=== PATIENT | female | born 1980 | race Caucasian/White ===

== ENCOUNTER → 2018-09-08 | Outpatient (CLI) | payer BC | LOC: DL.MRI 13:27 | PROVIDERS: ATTEND Orthopaedic Surgery | DX: M25.512 Pain in left shoulder (principal); G89.29 Other chronic pain; M75.82 Other shoulder lesions, left shoulder; M19.012 Primary osteoarthritis, left shoulder | CPT/HCPCS: 73221-LT ==

== ENCOUNTER 2018-10-03 19:18 | Emergency (ER) | payer BC ==
--- NOTE | 2018-10-03 19:39 | EDM.PDOC ---
ED HPI GENERAL MEDICAL PROBLEM - General Chief Complaint: Upper Extremity Injury/Pain Stated Complaint: LEFT SHOULDER PAIN Time Seen by Provider: 10/03/18 19:30 Source of Information: Reports: Patient, RN History Limitations: Reports: No Limitations - History of Present Illness INITIAL COMMENTS - FREE TEXT/NARRATIVE: c/o pain to left shoulder. Joint injection done on Tuesday in [place]. Has had more pain in joint with this injection than one prior. Contacted clinic by email today and told to go to ED for evaluation. No known fever or chills. Has been applying ice to shoulder. Pain worse with movement Left Shoulder Pain Score (Numeric/FACES): 9 - Related Data Allergies Allergy/AdvReac Type Severity Reaction Status Date / Time latex Allergy Itching Verified 10/03/18 19:26 Home Meds: Home Meds QUEtiapine Fumarate [Quetiapine Fumarate] 10 mg PO DAILY 10/03/18 [History] Sertraline HCl 50 mg PO DAILY 10/03/18 [History] Temazepam 30 mg PO DAILY 10/03/18 [History] Past Medical History Musculoskeletal History: Reports: Other (See Below) Other Musculoskeletal History: shoulder injury Social & Family History - Tobacco Use Smoking Status *Q: Never Smoker Second Hand Smoke Exposure: No - Recreational Drug Use Recreational Drug Use: No Review of Systems - Review of Systems Review Of Systems: ROS reveals no pertinent complaints other than HPI. ED EXAM, GENERAL - Physical Exam Exam: See Below Exam Limited By: No Limitations General Appearance: Alert, Mild Distress Eye Exam: Bilateral Eye: EOMI Ears: Normal External Exam, Normal TMs Nose: Normal Inspection Throat/Mouth: Normal Inspection Head: Atraumatic, Normocephalic Neck: Normal Inspection, Full Range of Motion Respiratory/Chest: No Respiratory Distress, Lungs Clear, Normal Breath Sounds Cardiovascular: Normal Peripheral Pulses, Regular Rate, Rhythm Peripheral Pulses: 2+: Radial (L) GI/Abdominal: Normal Bowel Sounds Extremities: Limited Range of Motion (left shoulder), Redness (Quarter size redness at injection site. 10xx11 cm surrounding light redness to upper shoulder. mild tenderness with palpation pain worse with movement.). No: Normal Range of Motion, Joint Swelling, Increased Warmth Course - Vital Signs Last Recorded V/S: Last Vital Signs Temp 96.7 F 10/03/18 19:22 Pulse 67 10/03/18 19:22 Resp 18 10/03/18 19:22 BP 118/75 10/03/18 19:22 Pulse Ox 100 10/03/18 19:22 - Orders/Labs/Meds Labs: Laboratory Tests 10/03/18 10/03/18 10/03/18 Range/Units 20:57 20:57 20:57 WBC 10.3 H (5.0-10.0) 10^3/uL RBC 5.06 (4.2-5.4) 10^6/uL Hgb 15.2 (12.0-16.0) g/dL Hct 44.1 (37.0-47.0) % MCV 87.2 (80-100) fL MCH 30.0 (27.0-34.0) pg MCHC 34.5 (33.0-35.0) g/dL Plt Count 316 (150-450) 10^3/uL Neut % (Auto) 60.8 (42.2-75.2) % Lymph % (Auto) 26.1 (20.5-50.1) % [place] % (Auto) 11.2 H (2-8) % Eos % (Auto) 1.7 (1.0-3.0) % Baso % (Auto) 0.2 (0.0-1.0) % Sodium 136 (135-145) mmol/L Potassium 3.7 (3.6-5.0) mmol/L Chloride 102 (101-111) mmol/L Carbon Dioxide 22.0 (21.0-31.0) mmol/L Anion Gap 15.7 BUN 14 (7-18) mg/dL Creatinine 0.7 (0.6-1.3) mg/dL Est Cr Clr Drug Dosing 107.00 mL/min Estimated GFR (MDRD) > 60 BUN/Creatinine Ratio 20.00 Glucose 80 (74-105) mg/dL Lactic Acid 1.3 (0.5-2.2) mmol/L Calcium 9.2 (8.4-10.2) mg/dl Total Bilirubin 0.5 (0.2-1.0) mg/dL AST 23 (10-42) IU/L ALT 32 (10-60) IU/L Alkaline Phosphatase 96 (42-121) IU/L Total Protein 8.1 (6.7-8.2) g/dl Albumin 4.2 (3.2-5.5) g/dl Globulin 3.9 Albumin/Globulin Ratio 1.08 Meds: Medications Discontinued Medications Generic Name Dose Route Start Last Admin Trade Name Patsy PRN Reason Stop Dose Admin Hydrocodone Bitart/Acetaminophen 1 tab 10/03/18 21:24 10/03/18 21:31 [place] 325-10 Mg PO 10/03/18 21:25 1 tab ONETIME ONE Administration Departure - Departure Time of Disposition: 21:46 Disposition: Home, Self-Care 01 Condition: Good Clinical Impression: Left shoulder pain - Discharge Information *PRESCRIPTION DRUG MONITORING PROGRAM REVIEWED*: Yes *COPY OF PRESCRIPTION DRUG MONITORING REPORT IN PATIENT DAVID: No Instructions: Shoulder Pain, Tendinitis, [id number] Referrals: PCP,None [Primary Care Provider] - Forms: ED Department Discharge Additional Instructions: Continue meloxicam as ordered rest to shoulder continue ice follow up with ortho in am
[2018-10-03 21:23] LABS: ANION GAP 15.7; CHLORIDE,CL 102 mmol/L (101-111); SODIUM,NA 136 mmol/L (135-145)
[2018-10-03] MEDS ORDERED: Acetaminophen/HYDROcodone 325-10 MG Tab PO ONE (21:24)
== END 2018-10-03 21:54 | disposition home or self-care (01) ==
LOC: DL.ED 19:18
DX: M25.512 Pain in left shoulder (principal); Z91.040 Latex allergy status; Z79.899 Other long term (current) drug therapy
CPT/HCPCS: 36415; 80053; 83605; 85025; 99283; A9270

== ENCOUNTER 2019-12-07 11:26 | Emergency (ER) | payer BC ==
--- NOTE | 2019-12-07 14:26 | CR ---
PROCEDURE INFORMATION: Exam: XR Right Finger(s) Exam date and time: 12/07/2019 2:01 PM Age: 39 years old Clinical indication: Pain; Finger(s); Right; Additional info: Crush/smashed distal right 4th finger TECHNIQUE: Imaging protocol: XR Right fingers. Views: Minimum 2 views. COMPARISON: No relevant prior studies available. FINDINGS: Bones/joints: The alignment of the joints is anatomic and the joint spaces are maintained. There is no evidence of acute fracture. There are no lytic or blastic skeletal lesions present. Soft tissues: No soft tissue swelling is identified. No radio-opaque foreign body seen. IMPRESSION: No acute process.
--- NOTE | 2019-12-07 14:59 | EDM.PDOC ---
Scribed by Krys Lo 12/07/19 3030 for Ashlie Mcghee MD ED HPI GENERAL MEDICAL PROBLEM - General Chief Complaint: Upper Extremity Injury/Pain Stated Complaint: NEED TO GET FINGER DRAINED Time Seen by Provider: 12/07/19 13:56 Source of Information: Reports: Patient, RN, RN Notes Reviewed History Limitations: Reports: No Limitations - History of Present Illness INITIAL COMMENTS - FREE TEXT/NARRATIVE: Patient presents to ER by POV stating that she dropped a propane tank on the distal right fourth finger. Denies any other injury. She complains of a lot of pressure at the distal finger, feels like the nail may need to be trepan to relieve the pressure. Onset Date: 12/06/19 Duration: Getting Worse Location: Reports: Upper Extremity, Right Quality: Reports: Ache Severity: Moderate Improves with: Reports: Rest Worsens with: Reports: Other (touch) Associated Symptoms: Reports: No Other Symptoms - Related Data Allergies Allergy/AdvReac Type Severity Reaction Status Date / Time latex Allergy Itching Verified 12/07/19 14:10 Home Meds: Home Meds QUEtiapine Fumarate [Quetiapine Fumarate] 10 mg PO BEDTIME 10/03/18 [History] Sertraline HCl 50 mg PO BEDTIME 10/03/18 [History] Temazepam 30 mg PO DAILY 10/03/18 [History] Past Medical History Musculoskeletal History: Reports: Other (See Below) Other Musculoskeletal History: shoulder injury Review of Systems - Review of Systems Review Of Systems: Comprehensive ROS is negative, except as noted in HPI. ED EXAM, GENERAL - Physical Exam Exam: See Below Exam Limited By: No Limitations General Appearance: Alert, WD/WN, No Apparent Distress Head: Atraumatic, Normocephalic Respiratory/Chest: No Respiratory Distress Cardiovascular: Normal Peripheral Pulses Extremities: Normal Range of Motion, Normal Capillary Refill, Other (right 4th finger subungual hematoma with generalized distal finger tenderness. Skin is intact. ) Neurological: Alert, Oriented, No Motor/Sensory Deficits ED TRAUMA EXTREMITY PROCEDURES - Additional/Other Procedure(s) Other (Free Text) Procedure(s): Rt 4th finger nail subungual hematoma trephinated with 18g needle with relief. Course - Vital Signs Last Recorded V/S: Last Vital Signs Temp 98.5 F 12/07/19 12:43 Pulse 72 12/07/19 12:43 Resp 16 12/07/19 12:43 BP 128/83 12/07/19 12:43 Pulse Ox 98 12/07/19 12:43 - Radiology Interpretation Free Text/Narrative:: [facility] [place] [facility] Final Radiology Report Call: [phone] assistance Online chat: [email or web address] Name: TYLER ARRINGTON Age: 39Years F Date: 12/07/2019 SSN: -- : [id number] Study: CR FINGERS FOURTH DIGIT RT Requesting Physician: ASHLIE MCGHEE Images: 3 Addl Studies: Provided Clinical History: Crush/smashed distal right 4th finger Contrast: Contrast Medium: Contrast Amount: Contrast Method: CONFIDENTIALITY STATEMENT This report is intended only for use by the referring physician, and only in accordance with law. If you received this in error, call [phone]. Page 1 of 1 PROCEDURE INFORMATION: Exam: XR Right Finger(s) Exam date and time: 12/07/2019 2:01 PM Age: 39 years old Clinical indication: Pain; Finger(s); Right; Additional info: Crush/smashed distal right 4th finger TECHNIQUE: Imaging protocol: XR Right fingers. Views: Minimum 2 views. COMPARISON: No relevant prior studies available. FINDINGS: Bones/joints: The alignment of the joints is anatomic and the joint spaces are maintained. There is no evidence of acute fracture. There are no lytic or blastic skeletal lesions present. Soft tissues: No soft tissue swelling is identified. No radio-opaque foreign body seen. IMPRESSION: No acute process. Thank you for allowing us to participate in the care of your patient. Dictated and Authenticated by: Marcos Olvera MD 12/07/2019 2:25 PM Central Time ([place] & [place]) Departure - Departure Time of Disposition: 14:56 Disposition: Home, Self-Care 01 Condition: Good Clinical Impression: Subungual hematoma of finger of right hand Qualifiers: Encounter type: initial encounter Qualified Code(s): S60.10XA - Contusion of unspecified finger with damage to nail, initial encounter - Discharge Information *PRESCRIPTION DRUG MONITORING PROGRAM REVIEWED*: Not Applicable *COPY OF PRESCRIPTION DRUG MONITORING REPORT IN PATIENT DAVID: Not Applicable Instructions: Subungual Hematoma Forms: ED Department Discharge Additional Instructions: Keep affected finger nail covered with a band aid or tape. Sepsis Event Note (ED) - Focused Exam Vital Signs: Vital Signs Temp Pulse Resp BP Pulse Ox 12/07/19 12:43 98.5 F 72 16 128/83 98 I have read and agree with the documentation that has been completed regarding this visit. By signing this record, I attest that the documentation was completed in my physical presence and is an accurate record of the encounter.
== END 2019-12-07 15:12 | disposition home or self-care (01) ==
LOC: DL.ED 11:26
DX: S60.141A Contusion of right ring finger with damage to nail, initial encounter (principal); Z91.040 Latex allergy status; Z79.899 Other long term (current) drug therapy; W20.8XXA Other cause of strike by thrown, projected or falling object, initial encounter
CPT/HCPCS: 11740; 73140-F8; 99283-25

== ENCOUNTER 2020-09-24 16:21 | Emergency (ER) | payer BC ==
[2020-09-24] MEDS ORDERED: Lidocaine 1% 30 ML SDV INJECT ONE (16:40)
[2020-09-24] MEDS ORDERED: Bacitracin Oint 1 GM U/D Packet TOP ONE (16:43)
--- NOTE | 2020-09-24 17:18 | EDM.PDOC ---
<Lamin Hector - Last Filed: 09/24/20 17:18> ED HPI GENERAL MEDICAL PROBLEM - General Chief Complaint: Upper Extremity Injury/Pain Stated Complaint: FINGER SLAMMED IN CAR DOOR Time Seen by Provider: 09/24/20 16:40 Source of Information: Reports: Patient History Limitations: Reports: No Limitations - History of Present Illness INITIAL COMMENTS - FREE TEXT/NARRATIVE: Ny is a 40 year old female presenting to the ER following getting her finger caught in a car door. It happened a few hours ago, the car door closed on her left fifth digit. She has pain over the area and bleeding. She has sensation in her finger tip. She states she felt a clicking in her distal 5th digit. Onset: Today - Related Data Allergies Allergy/AdvReac Type Severity Reaction Status Date / Time latex Allergy Itching Verified 09/24/20 16:35 Home Meds: Home Meds QUEtiapine Fumarate [Quetiapine Fumarate] 100 mg PO BEDTIME 10/03/18 [History] Sertraline HCl 75 mg PO DAILY 10/03/18 [History] Temazepam 30 mg PO BEDTIME 10/03/18 [History] Past Medical History HEENT History: Reports: None Cardiovascular History: Reports: None Respiratory History: Reports: None Gastrointestinal History: Reports: None Genitourinary History: Reports: None EMERGENCY RESPONSE COORDINATOR History: Reports: None Musculoskeletal History: Reports: Other (See Below) Other Musculoskeletal History: shoulder injury Neurological History: Reports: None Psychiatric History: Reports: Anxiety Endocrine/Metabolic History: Reports: None Hematologic History: Reports: None Immunologic History: Reports: None Oncologic (Cancer) History: Reports: None Dermatologic History: Reports: None - Infectious Disease History Infectious Disease History: Reports: None - Past Surgical History HEENT Surgical History: Reports: None Cardiovascular Surgical History: Reports: None Respiratory Surgical History: Reports: None GI Surgical History: Reports: None Female Surgical History: Reports: Endometrial Ablation Neurological Surgical History: Reports: None Musculoskeletal Surgical History: Reports: None Social & Family History - Family History Family Medical History: No Pertinent Family History - Caffeine Use Caffeine Use: Reports: Coffee Review of Systems - Review of Systems Review Of Systems: Comprehensive ROS is negative, except as noted in HPI. ED EXAM, GENERAL - Physical Exam Exam: See Below Exam Limited By: No Limitations General Appearance: Alert, No Apparent Distress Ears: Normal External Exam Head: Atraumatic Neck: Normal Inspection Respiratory/Chest: No Respiratory Distress, Lungs Clear, Normal Breath Sounds Cardiovascular: Regular Rate, Rhythm, No Edema Extremities: Other (left 5th digit nail falling off at the base, activily bleeding ) Neurological: Alert, Oriented, Other (Sensation intact at distal left fifth digit ) ED TRAUMA EXTREMITY PROCEDURES - Laceration/Wound Repair Left Digit - 5th (Baby) Appearance: Superficial Anesthetic Type: Digital Local Anesthesia - Lidocaine (Xylocaine): 1% Plain Local Anesthetic Volume: 5cc Skin Prep: Isopropyl Alcohol (Alcohol) Exploration/Debridement/Repair: Other (Removed nail from nail bed) Closed With: Sutures Suture Size: 4-0 # of Sutures: 1 Suture Type: Other ([place]) Departure - Departure Time of Disposition: 17:39 Disposition: Home, Self-Care 01 Clinical Impression: Fracture, finger, distal phalanx Qualifiers: Encounter type: initial encounter Finger: little finger Fracture type: closed Fracture alignment: nondisplaced Laterality: left Qualified Code(s): S62.667A - Nondisplaced fracture of distal phalanx of left little finger, initial encounter for closed fracture Laceration of finger nail bed Qualifiers: Encounter type: initial encounter Qualified Code(s): S61.319A - Laceration without foreign body of unspecified finger with damage to nail, initial encounter - Discharge Information *PRESCRIPTION DRUG MONITORING PROGRAM REVIEWED*: Not Applicable *COPY OF PRESCRIPTION DRUG MONITORING REPORT IN PATIENT DAVID: Not Applicable Instructions: Laceration Care, Adult Forms: ED Department Discharge Additional Instructions: Discussed distal phalanx fracture of the 5th digit, laceration repair with 1 suture, will need to follow-up in 7-10 days for suture removal. Signs of infection discussed. <Myesha Brambila - Last Filed: 09/25/20 15:56> Course - Vital Signs Last Recorded V/S: Last Vital Signs Temp 97.1 F 09/24/20 16:36 Pulse 79 09/24/20 16:36 Resp 20 09/24/20 16:36 BP 111/74 09/24/20 16:36 Pulse Ox 100 09/24/20 16:36 - Orders/Labs/Meds Meds: Medications Discontinued Medications Generic Name Dose Route Start Last Admin Trade Name Freq PRN Reason Stop Dose Admin Bacitracin 1 dose 09/24/20 16:43 09/24/20 16:47 Bacitracin Oint 1 Gm U/D Packet TOP 09/24/20 16:44 1 dose ONETIME ONE Administration Lidocaine HCl 30 ml 09/24/20 16:40 09/24/20 16:48 Lidocaine 1% 30 Ml Sdv INJECT 09/24/20 16:41 30 ml ONETIME ONE Administration - Re-Assessments/Exams Free Text/Narrative Re-Assessment/Exam: 09/24/20 I saw and evaluated the patient. Discussed with resident and agree with residents findings and plan as documented in the residents note.
--- NOTE | 2020-09-24 17:31 | CR ---
PROCEDURE INFORMATION: Exam: XR Left Finger(s) Exam date and time: 09/24/2020 5:22 PM Age: 40 years old Clinical indication: Pain; Finger(s); Left; Additional info: Finger pain TECHNIQUE: Imaging protocol: XR Left fingers. Views: Minimum 2 views. Total images: 3 COMPARISON: No relevant prior studies available. FINDINGS: Bones/joints: There is an acute minimally displaced fracture through the distal tuft of the left 5th finger. Soft tissues: Normal. IMPRESSION: Acute minimally displaced fracture through the distal tuft left 5th finger.
== END 2020-09-24 17:46 | disposition home or self-care (01) ==
LOC: DL.ED 16:21
DX: S62.667A Nondisplaced fracture of distal phalanx of left little finger, initial encounter for closed fracture (principal); S61.317A Laceration without foreign body of left little finger with damage to nail, initial encounter; Z91.040 Latex allergy status; W23.0XXA Caught, crushed, jammed, or pinched between moving objects, initial encounter
CPT/HCPCS: 11760; 12001; 73140-F4; 99283; 99283-25

== ENCOUNTER 2021-12-25 18:24 | Emergency (ER) | payer BC, OTHER ==
[2021-12-25] MEDS ORDERED: Acetaminophen/HYDROcodone 325-5 MG Tab PO ONE (18:25)
[2021-12-25] MEDS ORDERED: predniSONE 20 MG Tab PO ONE (21:00)
[2021-12-25] MEDS ORDERED: Famotidine 20 MG Tab PO ONE (21:00)
[2021-12-25] MEDS ORDERED: Acetaminophen/HYDROcodone 325-5 MG Tab ONE (21:43)
== END 2021-12-25 21:47 | disposition home or self-care (01) ==
LOC: DL.ED 18:24
DX: T78.40XA Allergy, unspecified, initial encounter (principal); Z91.040 Latex allergy status; Z79.899 Other long term (current) drug therapy; Z87.891 Personal history of nicotine dependence
CPT/HCPCS: 99283; A9270; J7512; 99282